=== PATIENT | male | born 1960 | race Caucasian/White ===

== ENCOUNTER → 2017-04-16 | Day surgery (SDC) | payer OTHER ==
[~2017-04-16] MED LIST: BACITRACIN IM FOR SOLN 50,000 UNIT VIAL ONE; BUPIVACAINE/EPINEPHRINE 0.25% PF 10 ML VIAL ONE; GENTAMICIN SULFATE 80 MG/2 ML VIAL ONE; HYDR-3580 PO; KETOROLAC TROMETHAMINE 30 MG/ML (IVP) VIAL IV PUSH ONE; LACTATED RINGER'S 1000 ML INJ 1,000 ML ONE; MIDAZOLAM HCL 2 MG/2 ML VIAL ONE; ONDANSETRON HCL 4 MG/2 ML VIAL IV PUSH ONE; PROPOFOL 200 MG/20 ML AMP IV ONE; SODIUM CHLORIDE 0.9% 20 ML VIAL ONE; ULTR50TA PO; VANCOMYCIN HCL 1000 MG VIAL ONE; WELL150T PO; ceFAZolin 2 GM PREMIX 50 ML ONE; ceFAZolin INJ 1,000 MG VIAL ONE
--- NOTE | 2017-04-16 10:44 | TN ---
cc: ALVAREZ HURD DATE OF SURGERY: 04/16/2017 PREOPERATIVE DIAGNOSIS 1. Osteoarthritis left knee, medial compartment 2. Chondromalacia patella POSTOPERATIVE DIAGNOSIS Same PROCEDURE 1. Left of right knee unicompartmental replacement plasty, medial compartment 2. Partial patellectomy numb SURGEON Tab Hurd assisted Alvarez Hurd ANESTHESIA General. Blood loss is 100 mL INDICATION This a 57-year-old male with varus deformity and medial compartment arthritis of the right knee. The patient had extensive conservative care which is outlined in the attached notes. The patient has had medication, altered activity, intra-articular injections, use of the knee abrasion and physical therapy. His treatment progressed over a period of several years. The patient now presents for surgical treatment. Components; company: [employer]: The right medial, size two, metal, cemented. Tibia: 6.5, polyethylene, cemented. PROCEDURE The patient brought to the operating room anesthetized in supine position. Antibiotics given 1 hour time window and a time-out was done. After exsanguination the right leg was scrubbed alcohol followed by Hibiclens followed Chloraprep and draped sterilely. After time-out was done. The leg was exsanguinated. Tourniquet inflated to 250 mmHg. An anterior and slightly medial incision was made along medial facet of patella. The medial arthrotomy was performed. An effusion was drained. The medial facet of patella was resected with the oscillating saw. Deep retractors allowed good visualization. The medial meniscus was excised. The posterior facet of the femur was resected using the alignment guide. This was sized for a #2 femoral component. The tibia was contoured freehand. A size #2 tibial inlay was positioned. The overall alignment was satisfactory. We did a trial abduction with a #2 femur. And #2 tibia. The patient range of motion full extension to 125 degrees flexion. The medial osteophyte was resected. The wound was irrigated copiously. A field block was used with half percent Marcaine with epinephrine. One packet of methacrylate was mixed on the back table and the components were cemented. Excess cement was removed. The knee was brought into full extension. The wound was irrigated copiously. The tourniquet was let down. Hemostasis was controlled with electrocautery. The arthrotomy repaired with interrupted #2 Tycron sutures over drain. The patient's 2-0 Vicryl suture and skin with running dermal 3-0 Vicryl followed by Benzoin, Steri-Strips. Sponge count, needle counts, instrument counts all correct. The patient tolerated the procedure well, taken to the Recovery Room in satisfactory condition. Tab MD INDY Prajapati/ /8:29 AM /10:10 AM
== END | disposition home or self-care (01) ==
LOC: ESDC 06:04
PROVIDERS: ATTEND Orthopaedic Surgery Orthopaedic Surgery of the Spine
DX: M17.12 Unilateral primary osteoarthritis, left knee (principal); M22.42 Chondromalacia patellae, left knee
CPT/HCPCS: 01400; 27446; C1776; J0690; J1580; J1885; J2250; J2405; J3010; J3370; J7120

== ENCOUNTER 2018-09-02 07:16 | Inpatient (IN) ==
[2018-09-02] MEDS ORDERED: TRANEXAMIC ACID IV.SIG SCH (08:00)
[2018-09-02] MEDS ORDERED: Chlorhexidine 4% Topical 120 APPLIC/120 ML Bottle TOPICAL SCH (08:00)
[2018-09-02] MEDS ORDERED: SODIUM CHLOR 0.9% IV.SIG SCH (08:00)
[2018-09-02] MEDS ORDERED: Chlorhexidine Gluconate 2% 1 Pack (2 Cloths) TOPICAL ONE (08:00)
[2018-09-02] MEDS ORDERED: Metoprolol Tartrate 25 MG Tablet PO ONE (08:00)
[2018-09-02] MEDS ORDERED: Sodium Chlor 0.9% Inj 40 ML, Bupivacaine Liposo PF 1.3% Inj 20 ML P-ARTICULR SCH ×2 (08:00)
[2018-09-02] MEDS ORDERED: Sodium Chlor 0.9% Inj 500 ML IV.CONT ONE (08:00)
[2018-09-02] MEDS ORDERED: ceFAZolin 2 GM Premix Inj 2 GM/50 ML PIGGYBACK IV.SIG SCH (08:00)
[2018-09-02] MEDS ORDERED: Vancomycin Inj 1,000 MG in Sodium Chlor 0.9% Inj 250 ML IV.SIG SCH (08:00)
[2018-09-02] MEDS ORDERED: Lidocaine PF 1% Inj 5 ML Syringe OTHER ONE (10:35)
[2018-09-02] MEDS ORDERED: Neostigmine Inj 5 MG/5 ML Syringe IV.PUSH ONE (10:35)
[2018-09-02] MEDS ORDERED: Phenylephrine/NS 1000 MCG/10ML Syringe IV.PUSH ONE (10:35)
[2018-09-02] MEDS ORDERED: Glycopyrrolate Inj 1 MG/5 ML Syringe IV.PUSH ONE (10:35)
[2018-09-02] MEDS ORDERED: Bupivacaine/Epinephrine Inj 0.25% 50 ML Vial ONE (10:43)
[2018-09-02] MEDS ORDERED: Bisacodyl 10 MG Supp RECTAL PRN (13:14)
[2018-09-02] MEDS ORDERED: Morphine Inj 4 MG/ML Vial IV.PUSH PRN (13:14)
[2018-09-02] MEDS ORDERED: Temazepam 15 MG Capsule PO PRN (13:14)
--- NOTE | 2018-09-02 13:20 | P.DCO ---
- Physical Therapy Physical Therapy: Gait training (5 x/week for 2 weeks) Knee: Total knee, Protocol: Right, Full weight bearing Canvas Knee Splint: Other (At night for 4 weeks) - Nursing RN: 3 days/week x 2 weeks Dressing changes: Do not change dressing (Unless saturated. If saturated, alcohol dressing daily) - Certification Need for Home Health services: I have seen patient Andrea Alcantar on 09/02/18. My clinical findings support the need for the requested home health care services because: Need for Home Health Services: High risk of falls Homebound Certification: I certify that my clinical findings support that this patient is homebound because: Homebound Certification: Impaired cognitive ability/safety, Unsteady gait/ balance
[2018-09-02] MEDS ORDERED: Post-op Orders (for Pharmacy) OTHER STA (13:30)
--- NOTE | 2018-09-02 13:34 | P.OP ---
- Preoperative Diagnosis (1) Osteoarthritis, knee Preoperative Diagnosis: Malfunctioning right knee unicompartmental replacement arthroplasty. Loosened tibial component, right uni-compartment replacement arthroplasty. Osteoarthritis, right knee Postoperative Diagnosis: Same Date of procedure: 09/02/18 Procedure: Revisional right knee replacement arthroplasty Anesthesia: GETA Surgeon: Tab Rios MD Senior Business Consultant: DAVIS Galdamez Operation and Findings: EBL: Minimal INDICATION: This patient presents with significant right knee pain. The patient having loosening of the tibial component. She continued to be painful despite unicompartmental placement. He is developing progressive arthritis. He now presents for surgical treatment. The patient now presents for surgical treatment. NOTE: Arleen Galdamez was present for the entire surgical procedure as my director of first impressions. In my medical opinion that individual's skill and care was necessary for proper management of this patient. TOURNIQUET TIME: 72 minutes COMPANY: [employer] FEMUR: Size 7 TIBIA: Size 8 PATELLA: 38 mm POLYETHYLENE INSERT: 6 mm PROCEDURE: This patient was brought the operating room and anesthetized in the supine position. The patient was positioned supine on the table. The tourniquet was placed about the thigh, and the leg was scrubbed with alcohol followed by Hibiclens followed by ChloraPrep and draped sterilely. A timeout was done, and antibiotics were given. After exsanguination the tourniquet was inflated to 250 mmHg. An anterior incision was made and a median parapatellar arthrotomy was performed. The patella was released laterally and subluxed allowing freehand cut of the patella which was then sized. A metal cap was placed over the exposed patellar surface for protection. A pilot control operator hole was placed in the distal femur allowing a 5 valgus cut removing 9 mm from the distal femur. The initial anterior cut was partially made. The medial resurfacing arthroplasty was loosened with osteotomes. This was very carefully removed from the surrounding cement and bone. Very carefully in a retrograde fashion the femoral component was removed. The distal femoral cut was completed. Anterior posterior and chamfer cuts were made. By the nature of the cut, the posterior medial side did not need an augment. No distal augment was necessary. The posterior stabilize osteotomy was made. The attention was directed to the tibia. Retractors were positioned. The external alignment guide was used allowing the lateral tibia to be used as referencing guide and cut utilizing an oscillating saw taking care to avoid any injury to the surrounding soft tissues. There was a defect in the medial side. The medial component was loose and was removed without difficulty. This was sized properly. Trial reduction showed that the insert fit nicely. The patient had range of motion extension 0 flexion 120. A medial release was not necessary. The bony surfaces prepared. On the back table 2 packets of methylmethacrylate were mixed. Bone grafting of the medial tibia was not necessary. The components were cemented. Excess cement was removed. The tourniquet let down and hemostasis was controlled. The final plastic insert was inserted. Range of motion was the same as previously noted. A drain was brought through a separate stab incision. A field block was used with local anesthesia for pain control. The arthrotomy was repaired with interrupted #1 Vicryl suture, subcutaneous tissue 2-0 Vicryl suture and skin with metallic hina A sterile dressing was applied. Sponge counts, needle counts and instrument counts were all correct. The patient tolerated procedure well and was taken to recovery in satisfactory condition. FINDINGS: There was subsidence and loosening of the tibial component. Progressive arthritis was developing especially in the retropatellar region and some developing in the lateral compartment.
[2018-09-02] MEDS ORDERED: fentaNYL Citrate Inj 100 MCG/2 ML Ampul ONE (13:41)
[2018-09-02] MEDS ORDERED: *morphine SULFATE 4 MG/ML PERIprocedure ONLY ONE ×2 (14:02→14:10)
--- NOTE | 2018-09-02 14:11 | XR ---
EXAM DATE: 09/02/2018 2:07 PM EDT AGE/SEX: 58 years / Male INDICATIONS: Post-op right total kne arthroplasty. CLINICAL DATA: This is the patient's initial encounter. Patient reports that signs and symptoms have been present for 1 day and indicates a pain score of 4/10. MEDICAL/SURGICAL HISTORY: None. . Right partial knee arthroplasty. COMPARISON: POI, MR KNEE W/O CONTRAST, RIGHT, 03/04/2017. . FINDINGS: Knee arthroplasty in place. Arthroplasty components are in anatomic alignment without acute fracture. Immediate postsurgical soft tissue changes are noted. CONCLUSION: 1. Right knee arthroplasty in anatomic alignment without acute fracture. Electronically signed by: Steve Olsen MD 09/02/2018 2:10 PM EDT
[2018-09-02 16:25] VITALS: RESP 16
[2018-09-02] MEDS: ceFAZolin Inj 1,000 MG in Sodium Chlor 0.9% Inj 100 ML IV.SIG SCH ×2 (18:01→23:33)
[2018-09-02] MEDS: Senna/Docusate Sodium 8.6/50 MG Tablet PO SCH (20:24)
[2018-09-02] MEDS: Multivitamin/Minerals Therapeutic Tablet PO SCH (20:24)
[2018-09-02] MEDS ORDERED: traZODone 50 MG Tablet PO SCH (22:30)
[2018-09-03 04:17] LABS: Hematocrit 38.1 % (39.0-51.0); Hemoglobin 12.9 gm/dL (13.0-17.0)
[2018-09-03] MEDS: ceFAZolin Inj 1,000 MG in Sodium Chlor 0.9% Inj 100 ML IV.SIG SCH (05:17)
--- NOTE | 2018-09-03 07:37 | P.PNOP ---
Subjective Interval history: Doing well. Comfortable. at bedside Physical Exam Vital signs: Vital Signs 09/02/18 08:14 09/02/18 09:00 09/02/18 13:33 Temperature 98.3 F 98.1 F Pulse Rate 60 60 82 Respiratory Rate 20 7 L Blood Pressure 155/80 H 130/73 Pulse Oximetry 100 98 98 09/02/18 13:45 09/02/18 14:00 09/02/18 14:15 Temperature Pulse Rate 86 83 81 Respiratory Rate 10 L 10 L 12 Blood Pressure 121/69 126/67 125/70 Pulse Oximetry 99 99 98 09/02/18 15:00 09/02/18 16:00 09/02/18 20:00 Temperature 97.8 F 98.2 F Pulse Rate 86 81 75 Respiratory Rate 19 16 16 Blood Pressure 130/81 130/72 115/66 Pulse Oximetry 97 98 96 09/02/18 23:10 09/03/18 03:30 Temperature 98.2 F 98.1 F Pulse Rate 72 65 Respiratory Rate 16 16 Blood Pressure 121/62 107/61 Pulse Oximetry 96 98 Intake & Output 09/02/18 09/03/18 09/03/18 18:59 06:59 18:59 Intake Total 2309.48 / 2309.48 2570 / 2570 Output Total 850 / 850 400 / 400 Balance 1459.48 / 1459.48 2170 / 2170 Weight 74.8 kg 74.8 kg Intake: IV 407.48 / 407.48 2330 / 2330 LR 1000 mL Inj 1,000 ML @ 80 2000 / 2000 mls/hr IV.CONT .[id number] [facility] Rx# :[id number] Cyklokapron Inj 748 MG In NS 107.48 / 107.48 Inj 100 ML @ 200 mls/hr IV.SIG ONCE [facility] Rx#:[id number] Vancomycin Inj 1,000 MG In NS 250 / 250 Inj 250 ML @ 250 mls/hr IV.SIG HOG RIBBER [facility] Rx#:[id number] Ancef 2 GM Premix Inj 2 gm In 50 / 50 50 ml @ 100 mls/hr IV.SIG HOG RIBBER [facility] Rx#:[id number] Ancef Inj 1,000 MG In NS Inj 330 / 330 100 ML @ 200 mls/hr IV.SIG Q6H [facility] Rx#:[id number] Oral 702 / 702 240 / 240 Anesthesia Amount 1200 / 1200 Output: Urine 800 / 800 400 / 400 Estimated Blood Loss 50 / 50 Other: Date of Last Bowel Movement 09/02/18 Weight On Admission 74.8 kg Narrative: Dressing dry. Mild swelling. No drainage. No calf tenderness. Sensation distally normal. X-ray looks fine Results - Labs CBC & Chem 7: 09/03/18 03:41 Laboratory Results - last 24 hr 09/02/18 09/03/18 07:55 03:41 Hgb 12.9 L Hct 38.1 L Blood Type O Positive Antibody Screen Negative MTS Gel Crossmatch See Detail - Imaging Impressions Knee X-Ray 09/02/18 13:15 CONCLUSION: 1. Right knee arthroplasty in anatomic alignment without acute fracture. Assessment and Plan - Assessment and Plan Malfunctioning right uni-compartment replacement arthroplasty. SURGERY: Revision right total knee replacement: POD #1. PLAN: Weightbearing as tolerated. Home health care. Home physical therapy. Aspirin twice daily, 81 mg for 30 days. [place] 7.5. Prescription written. Walker. Bedside commode. Discharge to home. Orthopedically stable. No dressing change
--- NOTE | 2018-09-03 07:39 | P.DS ---
Date of admission: 09/02/18 07:16 Primary care physician: Jennifer Fuentes DO Brief History from admission: This patient had a uni-compartment replacement arthroplasty which developed tibial subsidence. He presents for conversion to revision total knee replacement Patient update on day of discharge: This patient had a previous medial compartment resurfacing arthroplasty. He developed tibial subsidence. Workup was negative for infection. He presents for revision total knee replacement DS: Diagnosis - Discharge Diagnosis (1) Osteoarthritis, knee Status: Acute DS: Medications - Discharge Medications Prescriptions: aspirin 81 mg PO BID #60 tab hydrocodone-acetaminophen 1 tab PO Q4H PRN #42 tab PRN Reason: Acute Pain hydrocodone-acetaminophen [[place]] 1 tab PO Q4H #42 tab DS: Summary Hospital Course: The patient was admitted electively on 09/02/2018. He had a revision right total knee replacement under a general anesthetic. There was minimal blood loss. His postoperative course was unremarkable. On postop day #1 he was up and ambulating without a walker. He had very little pain. He was tolerating oral medications and a regular diet. He is felt to be a candidate for discharge to home - Time Spent with Patient Total time spent providing and/or coordinating discharge services: Less than 30 minutes - Quality: VTE Deep Vein Thrombosis/Pulmonary Embolism Present on Admission: No Exam Vital signs: Vital Signs 09/02/18 08:14 09/02/18 09:00 09/02/18 13:33 Temperature 98.3 F 98.1 F Pulse Rate 60 60 82 Respiratory Rate 20 7 L Blood Pressure 155/80 H 130/73 Pulse Oximetry 100 98 98 09/02/18 13:45 09/02/18 14:00 09/02/18 14:15 Temperature Pulse Rate 86 83 81 Respiratory Rate 10 L 10 L 12 Blood Pressure 121/69 126/67 125/70 Pulse Oximetry 99 99 98 09/02/18 15:00 09/02/18 16:00 09/02/18 20:00 Temperature 97.8 F 98.2 F Pulse Rate 86 81 75 Respiratory Rate 19 16 16 Blood Pressure 130/81 130/72 115/66 Pulse Oximetry 97 98 96 09/02/18 23:10 09/03/18 03:30 Temperature 98.2 F 98.1 F Pulse Rate 72 65 Respiratory Rate 16 16 Blood Pressure 121/62 107/61 Pulse Oximetry 96 98 Intake & Output 10/25/18 10/26/18 10/26/18 18:59 06:59 18:59 Intake Total 2309.48 / 2309.48 2570 / 2570 Output Total 850 / 850 400 / 400 Balance 1459.48 / 1459.48 2170 / 2170 Weight 74.8 kg 74.8 kg Intake: IV 407.48 / 407.48 2330 / 2330 LR 1000 mL Inj 1,000 ML @ 80 2000 / 2000 mls/hr IV.CONT .[id number] [facility] Rx# :[id number] Cyklokapron Inj 748 MG In NS 107.48 / 107.48 Inj 100 ML @ 200 mls/hr IV.SIG ONCE [facility] Rx#:[id number] Vancomycin Inj 1,000 MG In NS 250 / 250 Inj 250 ML @ 250 mls/hr IV.SIG SENIOR RELATIONSHIP MANAGER [facility] Rx#:[id number] Ancef 2 GM Premix Inj 2 gm In 50 / 50 50 ml @ 100 mls/hr IV.SIG SENIOR RELATIONSHIP MANAGER [facility] Rx#:[id number] Ancef Inj 1,000 MG In NS Inj 330 / 330 100 ML @ 200 mls/hr IV.SIG Q6H [facility] Rx#:[id number] Oral 702 / 702 240 / 240 Anesthesia Amount 1200 / 1200 Output: Urine 800 / 800 400 / 400 Estimated Blood Loss 50 / 50 Other: Date of Last Bowel Movement 09/02/18 Weight On Admission 74.8 kg Narrative: Dressing dry. Mild swelling. No drainage. No calf tenderness. Sensation distally normal. X-ray looks fine Results Procedures completed during hospitalization: Revision right total knee replacement arthroplasty Labs on day of discharge: Labs from last 24 hours 09/03/18 09/02/18 03:41 07:55 Hgb 12.9 L Hct 38.1 L Blood Type O Positive Antibody Screen Negative MTS Gel Crossmatch See Detail - Impressions ITS Impressions Knee X-Ray 09/02/18 13:15 CONCLUSION: 1. Right knee arthroplasty in anatomic alignment without acute fracture. Discharge Plan - Discharge Disposition Patient Disposition: W/Home Health Service - Discharge Condition Condition: Good - Discharge Order Discharge Orders: Discharge Order (Routine); Ordered 09/03/18 Ordered By: Tab Rios - Discharge Details Anticipated Discharge Date: 09/03/18 - Physicians Team Primary Care Provider: Jennifer Fuentes Attending Provider: Tab Rios - Rxs /Orders / Referrals /Forms Prescriptions: New aspirin 81 mg Tablet,Chewable 81 mg PO BID Qty: 60 RF: 0 hydrocodone-acetaminophen 7.5-325 mg Tablet 1 tab PO Q4H PRN (Reason: Acute Pain) Qty: 42 RF: 0 hydrocodone-acetaminophen [[place]] 7.5-325 mg Tablet 1 tab PO Q4H Qty: 42 RF: 0 Continue aripiprazole [Abilify] 5 mg Tablet 5 mg PO DAILY aripiprazole [Abilify] 2 mg Tablet 2 mg PO DAILY bupropion HCl [Wellbutrin XL] 300 mg Tablet Extended Release 24 Hr 450 mg PO QAM dextroamphetamine-amphetamine [Adderall] 20 mg Tablet 20 mg PO DAILY escitalopram oxalate [Lexapro] 10 mg Tablet 10 mg PO DAILY trazodone 50 mg Tablet 50 mg PO DAILY Ambulatory Orders / Order Sets / DME: Adjustable Commode 3-in-1 (1 each) (Routine) Location: Determined by Patient Ordered By: Tab Rios Walker With Front Wheels (1 each) (Routine) Location: Determined by Patient Ordered By: Tab Rios Referrals: Jennifer Fuentes, [Primary Care Provider] - See Instructions - Discharge Instructions Patient Printed Instructions: Hydrocodone/Acetaminophen (By mouth), Aspirin ( By mouth), Revision Total Joint Arthroplasty (DC) - Post Discharge Care Plan Care Plan Goals: Discharge Care Plan Goals for Total Knee Replacement You have undergone knee replacement surgery. Your doctor replaced your painful joint with an artificial joint to relieve pain and restore movement. Here are some goals to help you heal well. Directions to Meet your Goals: 1. Activity & Exercises: * Take pain medicine as directed by your doctor. * Sit in chairs with arms. The arms make it easier for you to stand up or sit down. * Dont sit for more than 30 to 45 minutes at one time. * Nap if you are tired, but dont stay in bed all day. * Sleep with a pillow under your ankle, not your knee. Be sure to change the position of your leg during the night. * Wear the support stockings you were given in the hospital as directed by your surgeon. 2. Prevent Falls/Injury: The shea to successful recovery is movement with walking and exercising your knee as directed by your doctor. * Arrange your household to keep the items you need handy. Keep everything else out of the way. * Remove items that may cause you to fall, such as throw rugs and electrical cords. * Use nonslip bath mats, grab bars, an elevated toilet seat, and a shower chair in your bathroom * Sit on a shower stool or chair when you shower to keep from falling. * Until your balance, flexibility, and strength improve, use a cane, crutches, a walker, handrails, or someone to help you. * Keep your hands free by using a backpack, aaron pack, apron, or pockets to carry things * Walk up and down stairs with support. Try one step at a time. Use the railing if possible. * Dont drive until your doctor says its OK. * Dont drive while you are taking opioid pain medicine. 3. Precautions: * Prevent infection. Any infection will need to be treated immediately. Call your doctor right away if you think you might have an infection. * Tell your dentist that you have an artificial joint and take antibiotics as prescribed before any dental work. * Tell all your healthcare providers about your artificial joint before any medical procedure. * Maintain a healthy weight. Get help to lose any extra pounds. Added body weight puts stress on the knee. * Your medications may include blood-thinning medicine to prevent blood clots or antibiotics to prevent infection-prevent any falls or cuts 4. Incision Care: * Prevent infection by washing your hands often. If an infection occurs, it will need to be treated right away. * Call your doctor right away if you think you may have an infection. Symptoms include a fever or an incision that leaks white, green, or yellow fluid. * Don't soak your incision in water until your doctor says its OK. This means no hot tubs, bathtubs, or swimming pools. * Follow your doctor's instructions for changing the dressing. * Dont rub the incision, or apply creams or lotions to it. * If you notice any redness or drainage around the bandage site, contact your surgeon's office immediately. 5. Follow-Up: Do Not miss your follow-up appointment. Keep up with all your appointments and yearly check ups When to call your doctor: Call your doctor right away if you have: Fever of 100.4F (38C) or higher, or as directed by your doctor Shaking chills Stiffness, or inability to move the knee Increased swelling in your leg Increased redness, tenderness, or swelling in or around the knee incision Drainage from the knee incision Increased knee pain Call 911: Call 911 right away if you have: Chest pain Shortness of breath Any pain or tenderness in your calf
[2018-09-03] MEDS ORDERED: BUPROPION HCL 450 MG PO SCH (09:00)
[2018-09-03] MEDS ORDERED: ARIPiprazole 2 MG Tablet PO SCH (09:00)
[2018-09-03] MEDS ORDERED: Amphetamine/Dextroamphetamine 20 MG Tablet PO SCH (09:00)
[2018-09-03] MEDS ORDERED: ARIPiprazole 5 MG Tablet PO SCH (09:00)
[2018-09-03] MEDS ORDERED: Escitalopram 10 MG Tablet PO SCH (09:00)
[2018-09-03] MEDS: Multivitamin/Minerals Therapeutic Tablet PO SCH (09:22)
[2018-09-03] MEDS: Senna/Docusate Sodium 8.6/50 MG Tablet PO SCH (09:23)
[2018-09-03 12:07] VITALS: BP 123/61; PULSE 70; TEMP 97.7; O2SAT 100
== END 2018-09-03 13:02 | disposition home health service (06) ==
LOC: HSDI 07:16 → N06 16:38
PROVIDERS: ADMIT Orthopaedic Surgery Orthopaedic Surgery of the Spine; ATTEND Orthopaedic Surgery Orthopaedic Surgery of the Spine